=== PATIENT | female | born 1955 | race Caucasian/White ===

== ENCOUNTER → 2017-06-14 | Outpatient (CLI) | payer OTHER ==
[~2017-06-14] MED LIST: WELL150T OR
[2017-06-14 09:04] LABS: ANION GAP 8 MEQ/L (5-15); AST (GOT) 20 U/L (15-37); BICARBONATE 31.3 MEQ/L (21.0-32.0); BLOOD UREA NITROGEN 14 MG/DL (7-18); CHLORIDE 102 MEQ/L (98-107); GLOMERULAR FILTRATION RATE 84 ML/MIN (>89); GLUCOSE,FASTING 88 MG/DL (74-99); SODIUM (NA) 141 MEQ/L (136-145)
[2017-06-14 09:05] LABS: ALT (GPT) 24 U/L (10-53)
[2017-06-14 09:09] LABS: ALKALINE PHOSPHATASE 61 U/L (45-117); LDL CHOLESTEROL 161 MG/DL (0-99); TOTAL BILIRUBIN ADULT 0.6 MG/DL (0.2-1.0)
== END ==
LOC: CLAB 08:06
PROVIDERS: ATTEND Family Medicine
DX: E78.2 Mixed hyperlipidemia (principal)
CPT/HCPCS: 36415; 80053; 80061

== ENCOUNTER → 2017-10-07 | Outpatient (CLI) | payer OTHER ==
[2017-10-07 09:12] LABS: HEMATOCRIT 39.3 % (35.0-46.0); MEAN CELL VOLUME 94.5 FL (80.0-100.0); MEAN CORPUSCULAR HEMOGLOBIN 32.2 PG (27.0-34.0); MEAN CORPUSCULAR HGB CONC 34.1 % (32.0-36.0); PLATELET COUNT 197 TH/MM3 (150-450); RED BLOOD COUNT 4.16 MIL/MM3 (4.00-5.30); RED CELL DISTRIBUTION WIDTH 12.5 % (11.6-17.2); REVIEW FLAG FINAL; WHITE BLOOD COUNT 3.6 TH/MM3 (4.0-11.0)
[2017-10-07 10:18] LABS: ANION GAP 7 MEQ/L (5-15); AST (GOT) 19 U/L (15-37); BICARBONATE 28.9 MEQ/L (21.0-32.0); BLOOD UREA NITROGEN 13 MG/DL (7-18); CHLORIDE 100 MEQ/L (98-107); GLUCOSE,FASTING 93 MG/DL (74-99); POTASSIUM 3.7 MEQ/L (3.5-5.1); SODIUM (NA) 136 MEQ/L (136-145)
[2017-10-07 12:02] LABS: ALKALINE PHOSPHATASE 62 U/L (45-117); ALT (GPT) 28 U/L (10-53); GLOMERULAR FILTRATION RATE 74 ML/MIN (>89); TOTAL BILIRUBIN ADULT 0.6 MG/DL (0.2-1.0)
== END ==
LOC: CLAB 08:38
PROVIDERS: ATTEND Family Medicine
DX: Z00.00 Encounter for general adult medical examination without abnormal findings (principal)
CPT/HCPCS: 36415; 80053; 84443; 85027

== ENCOUNTER 2017-11-15 09:14 | Emergency (ER) | payer OTHER ==
[~2017-11-15] VITALS: Ht 165.1 cm; Wt 60.0 kg
[2017-11-15 09:16] VITALS: BP 146/76; PULSE 74; RESP 12; TEMP 97.9; O2SAT 99
[2017-11-15] MEDS ORDERED: LISI20TA PO (09:30)
--- NOTE | 2017-11-15 09:55 | PD ---
HPI Chief Complaint: Injury Time Seen by Provider: 09:39 Travel History International Travel<30 days: No Contact w/Intl Traveler<30days: No Traveled to known affect area: No History of Present Illness HPI 62-year-old female presents to the emergency department complaining of left fourth and fifth toe pain for 3 weeks. Patient states that she actually struck her toe on some furniture at home and continues to have pain described as aching and worse with weightbearing. Patient states that she has been elevating the foot without significant relief. She has had to remove a portion of the shoe to relieve some of her pain. She denies numbness or tingling. She has been performing her regular activities but condition continues to have pain. She states that she waited until now to come to the emergency department because she did not think that we could do anything for her. She tried to go to her primary care physician but they were booked. PFSH Past Medical History ?: Not Social History Tobacco Use: No Allergies-Medications (Allergen,Severity, Reaction): Coded Allergies: No Known Allergies (Unverified Adverse Reaction, Unknown, 11/15/17) Reported Meds & Prescriptions Reported Meds & Active Scripts Active Reported Lisinopril-Hctz 20-12.5 Mg Tab 1 Tab PO DAILY Review of Systems Except as stated in HPI: all other systems reviewed are Neg Physical Exam Narrative GENERAL: Well-nourished, well-developed patient. SKIN: Focused skin assessment warm/dry. HEAD: Normocephalic. EYES: No scleral icterus. No injection or drainage. NECK: Supple, trachea midline. No JVD or lymphadenopathy. CARDIOVASCULAR: Regular rate and rhythm without murmurs, gallops, or rubs. RESPIRATORY: Breath sounds equal bilaterally. No accessory muscle use. MUSCULOSKELETAL: No cyanosis, or edema. Left fifth toe- mildly edematous compared to the right. No erythema. No obvious crepitus or deformities. Neurovascularly intact BACK: Nontender without obvious deformity. No CVA tenderness. Data Data Last Documented VS Vital Signs Date Time Temp Pulse Resp B/P (MAP) Pulse Ox O2 Delivery O2 Flow Rate FiO2 11/15/17 11:01 11/15/17 09:16 97.9 74 12 99 Orders Orders Foot, Complete (Etd1kmr) (11/15/17 ) Splint Or Brace Apply/Monitor (11/15/17 10:46) Ed Discharge Order (11/15/17 10:47) Shoe Cast (11/15/17 ) MDM Medical Decision Making Medical Screen Exam Complete: Yes Emergency Medical Condition: Yes Differential Diagnosis Left toe fracture, sprain, strain Narrative Course 62-year-old female presents to the emergency department complaining of left fourth and fifth toe pain for 3 weeks. Patient states that she actually struck her toe on some furniture at home and continues to have pain described as aching and worse with weightbearing. Patient states that she has been elevating the foot without significant relief. She has had to remove a portion of the shoe to relieve some of her pain. She denies numbness or tingling. She has been performing her regular activities but condition continues to have pain. She states that she waited until now to come to the emergency department because she did not think that we could do anything for her. She tried to go to her primary care physician but they were booked. Vital signs stable neck side physical exam findings consistent with fracture versus sprain Last Impressions Foot X-Ray 11/15/17 0000 Signed Impressions: Service Date/Time: Wednesday, November 15, 2017 10:07 - CONCLUSION: Oblique fracture proximal phalanx fifth toe. Matt Bernard MD FACR Patient will be giving a walking shoe and advised to follow-up in podiatry. Weightbearing as tolerated. Tylenol or Motrin per package instructions and RICE for symptom relief. Diagnosis Primary Impression: Toe fracture Qualified Codes: S92.514A - Nondisplaced fracture of proximal phalanx of right lesser toe(s), initial encounter for closed fracture Referrals: Pediatric Oncology Nurse Primary Care Physician Patient Instructions: General Instructions, Toe Fracture (ED) Additional Instructions: Use ice or heat for symptom relief. Elevate the joint above the heart to reduce swelling. You may use compression with Colby wrap or similar to reduce swelling. If symptoms persist or worsen, return to the emergency department. Follow up with your primary care physician within 2 days. Disposition: 01 DISCHARGE HOME Condition: Stable Clotilde Mcqueen Nov 15, 2017 09:55
--- NOTE | 2017-11-15 10:26 | RADRPT ---
EXAM DATE/TIME: 11/15/2017 10:07 [facility] COMPARISON: No previous studies available for comparison. INDICATIONS : Stubbed 4th and 5th toes 3 weeks ago still has pain. MEDICAL HISTORY : None. SURGICAL HISTORY : None. ENCOUNTER: Initial ACUITY: 1 day PAIN SCORE: 4/10 LOCATION: Left Foot and 4th and 5th toes. FINDINGS: Oblique fracture proximal phalanx fifth toe. Otherwise negative CONCLUSION: Oblique fracture proximal phalanx fifth toe. Matt Bernard MD FACR on November 15, 2017 at 10:23 Board Certified Radiologist. This report was verified electronically.
== END 2017-11-15 11:20 | disposition home or self-care (01) ==
LOC: NEPD 09:14
DX: S92.512A Displaced fracture of proximal phalanx of left lesser toe(s), initial encounter for closed fracture (principal); W22.03XA Walked into furniture, initial encounter
CPT/HCPCS: 73630; 99283; L3260

== ENCOUNTER → 2018-04-09 | Outpatient (CLI) | payer OTHER ==
[~2018-04-09] VITALS: Ht 165.1 cm; Wt 61.8 kg
[~2018-04-09] MED LIST changes: +CALC1TAB87 PO; +CHLORHEXIDINE GLUCONATE 2 % 1 PACK (2 CLOTHS) TOPICAL PRN; +LACTATED RINGER'S 1000 ML IV PRN; +LIDOCAINE HCL 1% PF 5 ML SYRINGE OTHER ONE; +LISI20TA PO; +METOPROLOL TARTRATE 25 MG TAB PO PRN; +MULT-65 PO; +POVIDONE IODINE 5% (ANTISEPSIS KIT) 4 APPLICATIONS EACH NARE PRN; +PROPOFOL 200 MG/20 ML AMP IV ONE; +SODIUM CHLORID 0.9% 500 ML IV PRN; -WELL150T OR
--- NOTE | 2018-04-09 11:32 | GIPROC ---
[facility] [address] [facility]. [facility], [address] COLONOSCOPY PROCEDURE REPORT EXAM DATE: 04/09/2018 PATIENT NAME: Anaya Cabrales MR #: [id number] BIRTHDATE: 1955 ENDOSCOPIST: Haim Bullock MD ORDER #: [id number] SLEEVE SETTER SAFETY STITCH: [place] and Rona Oliver STATUS: outpatient INDICATIONS: The patient is a 63 yr old female here for a colonoscopy due to screening, average risk. PROCEDURE PERFORMED: Colonoscopy with polypectomy MEDICATIONS: Per Anesthesia and None. PREP QUALITY: excellent ESTIMATED BLOOD LOSS: None CONSENT: The patient understands the risks and benefits of the procedure and understands that these risks include, but are not limited to: sedation, allergic reaction, infection, perforation and/or bleeding. Alternative means of evaluation and treatment include, among others: physical exam, x-rays, and/or surgical intervention. The patient elects to proceed with this endoscopic procedure. medical equipment was checked for proper function. Hand hygiene and appropriate measures for infection prevention was taken. After the risks, benefits and alternatives of the procedure were thoroughly explained, Informed consent was verified, confirmed and timeout was successfully executed by the treatment team. A digital exam revealed no abnormalities of the rectum The Pentax [id number] endoscope was introduced through the anus and advanced to the cecum, which was identified by both the appendix and ileocecal valve. The instrument was then slowly withdrawn as the colon was fully examined. COLON FINDINGS: A polypoid shaped pedunculated polyp ranging between 5-9mm in size was found in the rectum. A polypectomy was performed using snare cautery. The resection was complete and the polyp tissue was completely retrieved. Retroflexion was performed and was normal The scope was then completely withdrawn from the patient and the procedure terminated. PROCEDURE WITHDRAWAL TIME:16minutes ADVERSE EVENTS: There were no complications. IMPRESSIONS: 1. A pedunculated polyp ranging between 5-9mm in size was found in the rectum; polypectomy was performed using snare cautery 2. Retroflexion was performed and was normal 3. Revealed no abnormalities of the rectum RECOMMENDATIONS: Resume prior diet/medications. Will contact patient with polyp histology report when available; if this is adenomatous, a repeat colonoscopy will be recommended in five years. RECALL: Haim Bullock MD eSigned: Haim Bullock MD 04/09/2018 11:31 AM cc: En Mc M.D. PATIENT NAME: Anaya Cabrales MR#: [id number]
[2018-04-09 12:10] VITALS: BP 119/80; PULSE 67; RESP 18; TEMP 97.3; O2SAT 100
--- NOTE | 2018-04-09 22:10 | EKG ---
Date Performed: 04/09/2018 Time Performed: 09:54:48 PTAGE: 63 years EKG: Sinus rhythm WITH SINUS ARRHYTHMIA NORMAL ECG NO PREVIOUS TRACING DOCTOR: Zackery Hinds Interpretating Date/Time 04/09/2018 22:09:16
== END ==
LOC: HEND 08:58
DX: Z12.11 Encounter for screening for malignant neoplasm of colon (principal); D12.8 Benign neoplasm of rectum; I10 Essential (primary) hypertension; Z01.810 Encounter for preprocedural cardiovascular examination
CPT/HCPCS: 00811; 45385; 88305; 93005; J7120